=== PATIENT | female | born 1970 | race Hispanic/Latino ===

== ENCOUNTER 2017-10-07 22:02 | Emergency (ER) | payer BC, OTHER ==
[~2017-10-07] VITALS: Ht 162.6 cm; Wt 85.7 kg
[2017-10-07] MEDS ORDERED: CARVEDILOL12.5 MG PO (22:37)
[2017-10-07] MEDS ORDERED: AMLODIPINE BESY10 MG PO (22:37)
[2017-10-07] MEDS ORDERED: TRAZODONE HCL50 MG PO (22:37)
[2017-10-07] MEDS ORDERED: LORAZEPAM 1 MG TAB PO ONE (22:45)
== END 2017-10-07 22:50 | disposition home or self-care (01) ==
LOC: FSED 22:02
DX: F41.1 Generalized anxiety disorder (principal); F41.0 Panic disorder [episodic paroxysmal anxiety]; I10 Essential (primary) hypertension
CPT/HCPCS: 99282